=== PATIENT | female | born 1960 | race Caucasian/White ===

== ENCOUNTER 2023-12-16 14:11 | Emergency (ER) | payer MEDICARE, SELFPAY ==
[2023-12-16 14:14] VITALS: BP 146/68; PULSE 93; RESP 16; TEMP 36.2; O2SAT 95; BMI 44.7
--- NOTE | 2023-12-16 14:50 | RAD_ITS ---
STUDY: X-RAY - RIGHT ANKLE REASON FOR EXAM: Female, 63 years old. INJURY/FALL PAIN TECHNIQUE: 3 views of the right ankle. COMPARISON: None. FINDINGS: Normal visualized distal tibia and fibula. Normal medial and lateral malleoli. Normal tibiotalar articulation and ankle mortise. Intact visualized talus and calcaneus. There are small plantar and posterior calcaneal spurs. The visualized subtalar, talonavicular, calcaneocuboid and tarsal articulations are normal. There is no demonstrated fracture. The soft tissue structures are unremarkable. RAD/Ankle min 3 Views IMPRESSION: Small plantar and posterior calcaneal spurs. No demonstrated fracture. Electronically Signed: Mau Cardenas MD at 15:33 EST ,
--- NOTE | 2023-12-16 16:20 | RAD_ITS ---
STUDY: X-RAY - RIGHT TIBIA AND FIBULA REASON FOR EXAM: Female, 63 years old. fibular head pain TECHNIQUE: 2 view(s) of the tibia and fibula were obtained. COMPARISON: None. FINDINGS: Evaluation of the distal tibia and fibula markedly limited by significant overlying artifact possibly from footwear which was not removed. No gross fracture or dislocation. The soft tissue structures are grossly unremarkable. RAD/Tibia & Fibula 2 Views IMPRESSION: Very limited exam regarding the distal tibia and fibula. No gross acute fracture or dislocation. Electronically Signed: Cesar Alejo MD at 16:36 EST ,
--- NOTE | 2023-12-16 16:48 | ED.VIS.LOWEX ---
HPI History of Present Illness Chief Complaint: Lower Extremity Injury Informant: patient and spouse/S.O. Narrative Narrative: 63-year-old female presenting to the emergency room with chief complaint of fall. Patient states that she was trying to go up onto the curb when she missed and fell to the side. She notes pain right ankle right knee. She hit her head but denies loss of consciousness. She denies being on blood thinners. She notes her pain is over the anterior lateral aspect of the right ankle. She denies any bleeding or abrasions. PFSH PFSH Allergy/AdvReac Type Severity Reaction Status Date / Time acetaminophen Allergy Intermediate HIVES Verified 12/16/23 14:14 [From Darvocet-N] propoxyphene Allergy Intermediate HIVES Verified 12/16/23 14:14 [From Darvocet-N] Penicillins Allergy Mild Hives Verified 12/16/23 14:14 Social History Smoking Status: Never smoker ROS ROS ED Constitutional Constitutional ED: Denies chills or weight loss Eyes Eyes: Denies change in vision or diplopia ENT ENT ED: Denies ear pain, rhinorrhea or sore throat Cardiovascular Cardiovascular: Denies chest pain, orthopnea, palpitations or racing heartbeat Respiratory/Chest Respiratory/Chest: Denies cough, dyspnea or orthopnea Gastrointestinal Gastrointestinal: Denies abdominal pain, diarrhea, nausea or vomiting Genitourinary Genitourinary ED: Denies dysuria, hematuria or urinary frequency Musculoskeletal Musculoskeletal: Reports other Details: Right lower leg ankle pain ; Denies arthralgias or myalgias Integumentary Denies abscess or rash Neurologic Neurologic: Denies headache(s) or weakness Psychiatric Psychiatric: Denies anxiety, depression, suicidal ideation or suicidal thoughts Endocrine Endocrinology: Denies polydipsia, polyphagia or polyuria Allergic/Immunologic Allergic/Immunologic ED: Denies mouth swelling, tongue swelling or urticaria EXAM Physical Exam Const Vital Signs: 12/16/23 14:14 Temperature 97.2 F L Temperature Source Temporal Pulse Rate 93 Respiratory Rate 16 Blood Pressure 146/68 H Blood Pressure Mean 94 Pulse Ox 95 Oxygen Delivery Method Room Air Positive well nourished and well developed General Appearance ED: well developed HEENT Reports normocephalic, head/scalp atraumatic and moist mucous membranes Eyes PERRL and EOMs intact bilaterally Neck no lymphadenopathy, supple and no JVD Resp normal respiratory effort and clear to auscultation bilaterally Cardio regular rate, regular rhythm and no murmurs GI normal to inspection, nondistended, normoactive bowel sounds and non-tender Palpation: soft Back/Spine no CVA tenderness and normal ROM Extremity Extremity Narrative: Patient has tenderness over the lateral malleolus and over the anterior aspect of the right ankle. There is no fifth metatarsal pain. Positive fibular head tenderness. No obvious deformities. Neurovascular intact. No significant swelling or ecchymosis is seen General Extremety ED: Negative for edema General Extremity: Negative for edema Neuro oriented x3 and CN's II-XII intact bilaterally Sensorium / Orientation: alert Motor Exam: strength 5/5 throughout Psych mental status grossly normal Mood & Affect: Negative for depressed or tearful Skin no rashes or lesions noted and no wounds MDM MDM MDM Narrative Medical decision making narrative: I independent or potation of the ankle x-rays obtained through nursing protocol there is no acute fracture. Radiology concurs with this. Because of the fibular head tenderness I added on a tib-fib which is also negative for fracture. I ordered ice Motrin and Sal wrap. Patient will be discharged home with supportive care. Follow-up 10 to 14 days if not improving. Patient was upset about her wait time in the waiting room and was not wanting to go to [place]. I informed her that that could be her choice if she would choose but since she is here in we needed additional imaging she went ahead and state. History & Record Review Discussion w/independent historian: Patient and Significant other Radiography Diagnostic Testing: Clinical Impression(s) from Imaging Studies Ankle X-Ray 12/16/23 14:50 IMPRESSION: Small plantar and posterior calcaneal spurs. No demonstrated fracture. Electronically Signed: Mau Cardenas MD at 15:33 EST , Tibia/Fibula X-Ray 12/16/23 16:20 IMPRESSION: Very limited exam regarding the distal tibia and fibula. No gross acute fracture or dislocation. Electronically Signed: Cesar Alejo MD at 16:36 EST , Discharge Plan Triage Chief Complaint: Lower Extremity Injury ED Provider: Manny Flynn Dx/Rx/DC Orders Primary Care Provider: Nan Willis,Out of Referrals: Nan Willis,Out of [Primary Care Provider] -
== END 2023-12-16 17:20 | disposition home or self-care (01) ==
PROVIDERS: Emergency Provider Emergency Medicine; Visit Provider Emergency Medicine
DX: M25.561 Pain in right knee (principal); M25.571 Pain in right ankle and joints of right foot; W10.1XXA Fall (on)(from) sidewalk curb, initial encounter
CPT/HCPCS: 73590; 73610; 99282